=== PATIENT | male | born 1995 | race Hispanic/Latino ===

== ENCOUNTER 2020-12-25 10:17 | Emergency (ER) | payer OTHER ==
[~2020-12-25] VITALS: Ht 172.7 cm; Wt 122.7 kg
[~2020-12-25 10:17] MED LIST: KEFLEX500 MG PO; ULTRAM50 MG OR
[2020-12-25 13:00] VITALS: BP 153/93
== END 2020-12-25 13:00 | disposition home or self-care (01) | DRG 556 ==
LOC: ED 10:17
DX: M25.572 Pain in left ankle and joints of left foot (principal); M79.672 Pain in left foot; X50.0XXA Overexertion from strenuous movement or load, initial encounter; X50.9XXA Other and unspecified overexertion or strenuous movements or postures, initial encounter; Y93.89 Activity, other specified; Y92.89 Other specified places as the place of occurrence of the external cause; Y99.0 Civilian activity done for income or pay